=== PATIENT | female | born 1960 | race Caucasian/White ===

== ENCOUNTER → 2018-07-30 | Outpatient (CLI) | payer OTHER ==
[~2018-07-30] MED LIST: BUPXL150 PO; CALC1TAB32 PO; CYAN25004 PO; GLUC-125 PO; LACT1CAP4 PO; LOR5/325 PO; PAN40 PO; SERT25TA90 PO; VERA240C10 PO; VITA-175 PO; VITA-200 PO
--- NOTE | 2018-07-30 16:13 | RADIOLOGY IMAGING REPORT ---
FACILITY: [facility] [place] PATIENT NAME: KIMANI REDDY : [id number] MR: [id number] V: [id number] EXAM DATE: [id number] ORDERING PHYSICIAN: CLIVE BLEVINS TECHNOLOGIST: Rukhsana Amador PROCEDURE:BILATERAL DIGITAL SCREENING MAMMOGRAM WITH CAD ASSISTED INTERPRETATION & 3D TOMOSYNTHESIS COMPARISON:Prior mammograms 01/21/16, 10/21/13. INDICATIONS:SCREENING FINDINGS: There is scattered fibroglandular tissue. No suspicious mass, microcalcification or architectural distortion. No change compared to priors. DIAGNOSTIC CATEGORY 1--NEGATIVE. RECOMMENDATIONS: ROUTINE MAMMOGRAM AND CLINICAL EVALUATION. IMPRESSION: BIRADS 1: Negative. Dictated by: Audi Melendrez on 07/30/2018 at 15:20 Transcribed by: RAVI on 07/30/2018 at 15:24 Approved by: Audi Melendrez on 07/30/2018 at 16:12 [facility]
== END ==
LOC: MAMO 01:22
PROVIDERS: ATTEND Nurse Practitioner Psychiatric/Mental Health
DX: Z12.31 Encounter for screening mammogram for malignant neoplasm of breast (principal)
CPT/HCPCS: 77063; 77067